=== PATIENT | female | born 2000 | race Caucasian/White ===

== ENCOUNTER 2023-06-14 20:16 | Emergency (ER) | payer MEDICAID, MEDICARE ==
[~2023-06-14] VITALS: Ht 160 cm; Wt 62.6 kg
[2023-06-14 20:32] VITALS: BP 118/69; PULSE 69; RESP 17; TEMP 97.2; O2SAT 98
[2023-06-14] MEDS ORDERED: NACL 0.9% 1,000 ML IV ONE (22:40)
[2023-06-14] MEDS ORDERED: ONDANSETRON 4 MG/2 ML VIAL IVP ONE (22:40)
[2023-06-14] MEDS ORDERED: KETOROLAC 15 MG/ML VIAL IVP ONE (22:40)
[2023-06-14 22:51] LABS: BASOPHILS % (AUTO) 0.3 % (0.0-2.0); EOSINOPHILS # (AUTO) 0.1 K/uL (0-0.4); EOSINOPHILS % (AUTO) 0.7 % (0.0-4.0); HEMATOCRIT 39.4 % (36-48); HEMOGLOBIN 13.5 g/dL (12.0-16.0); LYMPHOCYTES # (AUTO) 1.8 K/uL (2.5-16.5); LYMPHOCYTES % (AUTO) 19.2 % (20.5-51.1); MEAN CORPUSCULAR HEMOGLOBIN 33 pg (27-31); MEAN CORPUSCULAR HGB CONC 34 g/dL (33-37); MEAN CORPUSCULAR VOLUME 95.1 fL (80-94); MONOCYTES # (AUTO) 0.8 K/uL (0.8-1.0); MONOCYTES % (AUTO) 8.9 % (1.7-9.3); NEUTROPHILS # (AUTO) 6.7 K/uL (1.8-7.7); NEUTROPHILS % (AUTO) 70.9 % (42.2-75.2); PLATELET COUNT (AUTO) 115 K/uL (140-450); RED BLOOD CELL COUNT(AUTO) 4.14 MIL/uL (4.20-5.40); RED CELL DISTRIBUTION WIDTH 12.7 % (11.6-13.7); WHITE BLOOD COUNT (AUTO) 9.4 K/uL (4.8-10.8)
[2023-06-14 23:08] LABS: ALBUMIN 4.1 g/dL (3.4-5.0); ANION GAP 11.9 (8-16); CARBON DIOXIDE 26.8 mmol/L (21-32); CREATININE 0.8 mg/dL (0.6-1.3); POTASSIUM 4.7 mmol/L (3.5-5.1); TOTAL BILIRUBIN 0.4 mg/dL (0.0-1.0); TOTAL PROTEIN, SERUM 7.3 g/dL (6.4-8.2)
[2023-06-14 23:27] LABS: APPEARANCE,URINE CLEAR (CLEAR); BILIRUBIN,URINE NEGATIVE (NEGATIVE); BLOOD, URINE NEGATIVE (NEGATIVE); COLOR,URINE YELLOW (YELLOW); LEUKOCYTE ESTERASE ,URINE NEGATIVE (NEGATIVE); NITRITE, URINE NEGATIVE (NEGATIVE); PH,URINE 7.5 (5.0-9.0); PROTEIN,URINE NEGATIVE (NEGATIVE); UGLUCOSE NEGATIVE (NEGATIVE); UROBILINOGEN,URINE 0.2 EU/dL (0.2 - 1)
[2023-06-14 23:38] VITALS: BP 122/71; PULSE 57; RESP 15; O2SAT 100
[2023-06-15] MEDS ORDERED: MORPHINE SULFATE 4 MG/ML SYR ONE (01:42)
[2023-06-15] MEDS ORDERED: IBUP-2213 PO (02:42)
== END 2023-06-15 03:03 | disposition home or self-care (01) ==
LOC: MED 20:16
DX: R10.31 Right lower quadrant pain (principal); R10.2 Pelvic and perineal pain; K62.5 Hemorrhage of anus and rectum; R11.0 Nausea; Z79.899 Other long term (current) drug therapy
CPT/HCPCS: 36415; 74177; 76856; 80053; 81003; 81025; 83690; 85025; 93976; 96361; 96374; 96375; 99285; J1885; J2270; J2405; J7030; Q0092; Q9967

== ENCOUNTER 2024-02-18 22:21 | Observation (INO) | payer MEDICAID ==
[~2024-02-18] VITALS: Ht 160 cm; Wt 63.5 kg
[~2024-02-18 22:21] MED LIST: IBUP-2213 PO
[2024-02-18 22:38] VITALS: BP 123/77; PULSE 88; TEMP 98.4
== END 2024-02-18 23:20 | disposition home or self-care (01) ==
LOC: MLD 22:21
PROVIDERS: ADMIT Obstetrics & Gynecology; ATTEND Obstetrics & Gynecology
DX: O26.893 Other specified pregnancy related conditions, third trimester (principal); N89.8 Other specified noninflammatory disorders of vagina; Z3A.32 32 weeks gestation of pregnancy
CPT/HCPCS: G0378; G0379